=== PATIENT | female | born 1965 | race Caucasian/White ===

== ENCOUNTER 2023-06-11 14:20 | Outpatient (AMB) | payer BC, SELFPAY ==
--- NOTE | 2023-06-11 14:22 | MHC.OFFVIS ---
Intake Vital Signs 06/11/23 14:27 Height 5 ft 4 in Weight 140 lb 2 oz BMI 24.0 BP 129/72 Blood Pressure Location Lt brachial Position Sitting Pulse 69 Pulse Source Pulse Oximeter Pulse Oximetry (%) 99 Oxygen Delivery Method Room Air Intake Visit Reasons: LT NECK PAIN AND RT SHOULDER PAIN/Confirmed Intake Note: Pain today 8/10 Development Intern Required: No Accompanied by: Self / Same As Patient Allergies No Known Allergies Allergy (Verified 06/11/23 14:27) HPI LT NECK PAIN AND RT SHOULDER PAIN/Confirmed HPI Details PT had MRI at [facility] 06/04/23 Location Right shoulder Duration 1+ year Characteristics of symptom or complaint Burning, aching, stabbing, sharp, tingling Aggravating or associated factors Movements, walking Relieving factors ibuprofen, heat Treatment PT-no improvement, chiropractor, acupuncture HPI Comments History of Present Illness Details Leyda is a very pleasant 58-year-old female who presents to the office today for evaluation management of her right sided neck pain. Patient reports that she has a suffering with this pain for approximately 1 year. She has tried PT 3 months ago and home exercise program without relief. She is taking muscle relaxers, anti-inflammatory medications and pzod-fqz-[id number] Tylenol without improvement of her symptoms. She has tried topical medications but also did not provide relief. She has been to the chiropractor and utilized a 10s machine which also did not provide relief. Patient has had x-rays and MRI consult as per below. She denies pain with full range of motion to the right upper extremity. Patient was only started cyclobenzaprine, she reports that she had nightmares and stopped taking it. She was prescribed tramadol but he reports that it gives her headache. Patient is also suffering with right-sided TMJ, she completed an MRI and has an appointment with maxillofacial in the near future. Pain today is rated at 8/10 In terms of muscle damage condition is described as burning, aching and stabbing. Pain is negatively impacting patient's normal sleep, ability to perform daily activities, ability to care for self, ability to function normally and her sleep and work. [facility] Medical History (Updated 06/11/23 @ 15:01 by Anna Dudley, GUEST SERVICE SUPERVISOR, PATHOLOGICAL TECHNICIAN) Neck pain Shoulder pain Surgical History (Updated 06/11/23 @ 14:38 by Beronica Harrison) H/O abdominoplasty Social History Patient Tobacco Use Status: Never used Tobacco Review of Systems Const All systems reviewed & are unremarkable except as noted in HPI and below Physical Exam Vital Signs: Last Vital Signs Pulse 69 06/11/23 14:27 BP 129/72 06/11/23 14:27 Pulse Ox 99 06/11/23 14:27 Oxygen Delivery Method Room Air 06/11/23 14:27 BMI result Body Mass Index 24.0 General: awake, alert, oriented. Answers questions appropriately. Fully engaged in examination. Skin: warm, dry, intact HEENT: Normocephalic. Hearing intact. Cardiac: External chest normal in appearance. Respiratory: No cough, audible wheezing or stridor. Abdomen: without gross distension. MS: No obvious swelling or deformities. Cervical Spine: Visible inspection without gross abnormality Tenderness throughout right upper and middle trapezius Tender to palpation over midline cervical vertebrae and cervical paraspinal muscles Cervical ROM intact Right shoulder ROM intact Right shoulder nontender to palpation over AC and GH. Spurling compression test positive Neurological: Oriented to person, place, time and situation. Thought process intact. No gait abnormalities appreciated. Psychiatric: Appropriate mood and affect. Good judgment and insight. Results Reviewed Results Reviewed: 06/04/23 MR SHOULDER WITHOUT CONTRAST RIGHT FINDINGS: The acromioclavicular joint is congruent. Undersurface of the acromion is flat. Coracoclavicular and coracoacromial ligaments are intact. Small fluid is present in the subacromial/subdeltoid bursa, compatible with low-grade bursitis. Rotator cuff muscle bulk is preserved. Supraspinatus and infraspinatus tendons exhibits intermediate T2 fat sat heterogeneous signal in keeping with low-grade tendinosis (coronal T2 fat sat images 12 and 13). Round 0.6 cm calcific deposit is associated with the distal infraspinatus tendon, along with surrounding mild hyperintense T2 fat-sat soft tissue edema, compatible with hydroxyapatite deposition and mild calcific peritendinitis (coronal T2 fat sat image 8; sagittal T2 fat sat image 8). No full-thickness or retracted cuff tear. Teres minor and subscapularis tendons are intact Long head biceps tendon is intact. The glenohumeral joint is congruent. No joint effusion. Glenohumeral cartilage is preserved. No labral detachment. Bone signal is normal. No soft tissue collection. IMPRESSION: 1. Mild calcific peritendinitis along the distal infraspinatus tendon with corresponding mild infraspinatus/supraspinatus tendinosis. No high-grade or retracted cuff tear. 06/04/23 MR SPINE CERVICAL without CONTRAST FINDINGS: No significant listhesis of the cervical vertebral bodies. Mild degenerative anterolisthesis of T1 on T2 and T2 on T3. There is loss of intervertebral disc space height and marginal osteophyte formation C5-C6. Mild loss of intervertebral disc space height and marginal osteophyte formation C6-C7. Mild degenerative changes of the C1-C2 articulation and craniocervical junction otherwise of normal relationship. Mild cervical facet arthrosis. Prevertebral soft tissues of normal appearance. No cord signal abnormality identified. Examination through the cranial cervical junction showing it to be widely patent. Examination through the C2-C3, C3-C4 and C4-C5 intervertebral levels without central stenosis or foraminal narrowing. Examination through the C5-C6 intervertebral level revealing mild facet arthrosis with uncovertebral degenerative changes and posterior disc osteophyte. There is no significant associated central stenosis. Moderate RIGHT foraminal narrowing. Mild to moderate LEFT foraminal narrowing. Examination through the C6-C7 intervertebral level revealing facet arthrosis. Mild uncovertebral degenerative changes. Small posterior disc osteophyte. No significant central stenosis. Mild bilateral foraminal narrowing. Examination through the C7-T1 intervertebral level revealing facet arthrosis. No central stenosis or significant foraminal narrowing. Impression: Spondylotic changes and facet arthrosis. No findings of fracture or traumatic listhesis. No significant central stenosis. Varying degrees of mild to moderate foraminal narrowing as above. Note made of mild degenerative anterolisthesis of T1 on T2 and T2 on T3. Significant associated central stenosis. Mild bilateral foraminal narrowing. These levels. Assessment & Plan Assessment & Plan (1) Cervical spondylolysis: Code(s): M43.02 - Spondylolysis, cervical region (2) Facet arthritis of cervical region: Code(s): M47.812 - Spondylosis without myelopathy or radiculopathy, cervical region (3) Trapezius muscle strain: Code(s): S46.819A - Strain of other muscles, fascia and tendons at shoulder and upper arm level, unspecified arm, initial encounter Plan Leyda is a very pleasant 58-year-old female presents to the office today for evaluation management of her left neck pain. History, physical exam of rectum testing consistent with cervical facet arthropathy and trapezius muscle strain. Discontinue cyclobenzaprine, prescription sent for methocarbamol 500 mg p.o. t.i.d. as needed. Patient will call the office if she has notable side effects and we can try something different. Patient is exhausted conservative therapy including PT, home exercise program, nonsteroidal anti-inflammatory medication, [id number] medications, topical medications and prescription medications. Discussed options for treatment including diagnostic interventional testing, epidural steroid injections, peripheral nerve stimulation with Sprint, RFA and more permanent neuromodulation. Informational pamphlets provided. Will schedule for Fluoroscopy guided diagnostic Right C4-5-6 MBBs with local anesthetic. if patient reports good pain relief with improvement in function and mobility will plan for C5MB Sprint PNS. All questions and concerns have been answered and patient agrees with the plan. Follow up after injections and sooner if needed. Medications: New methocarbamol Discontinue use of Cyclobenzaprine No driving while taking this medication. Do no take with alcohol or other [employer] SPECIALIST Depressants 500 mg PO TID PRN 90 tabs 1RF muscle spasm Coding Level of Care Code New Pt Level 4 (13903) Diagnoses Cervical spondylolysis M43.02 Facet arthritis of cervical region M47.812 Trapezius muscle strain S46.816A
[2023-06-11 14:27] VITALS: BP 129/72; PULSE 69; O2SAT 99; BMI 24.0
== END 2023-06-11 14:50 | disposition home or self-care (01) ==
PROVIDERS: PCP Internal Medicine; Referring Provider Internal Medicine; Visit Provider Registered Nurse Emergency
DX: M43.02 Spondylolysis, cervical region (principal); M47.812 Spondylosis without myelopathy or radiculopathy, cervical region; S46.819A Strain of other muscles, fascia and tendons at shoulder and upper arm level, unspecified arm, initial encounter
CPT/HCPCS: 99204

== ENCOUNTER → 2023-06-11 14:20 | Outpatient (BNVA) | payer BC, SELFPAY | PROVIDERS: PCP Internal Medicine; Referring Provider Internal Medicine; Visit Provider Registered Nurse Emergency ==

== ENCOUNTER 2023-07-01 15:43 | Outpatient (AMB) | payer BC, SELFPAY ==
--- NOTE | 2023-07-01 15:44 | A.OFFVIS_ITS ---
Intake Vital Signs 07/01/23 15:48 Height 5 ft 4 in Weight 145 lb 4 oz BMI 24.9 BP 130/62 Blood Pressure Location Lt brachial Position Sitting Respiration 16 Pulse 62 Pulse Source Pulse Oximeter Pulse Oximetry (%) 96 Oxygen Delivery Method Room Air Intake Visit Reasons: Would like to discuss MRI results before Jul Appt Intake Note: Patient comes in to discuss MRI results. Reports pain level 7/10. Allergies No Known Allergies Allergy (Verified 07/01/23 15:48) HPI HPI Comments History of Present Illness Details Leyda is a very pleasant 58-year-old female who presents to the office today for evaluation management of her right sided neck pain. She was scheduled for right-sided medial branch block C4-C5 C6 diagnostic to confirm more elimin ate the facet arthropathy and arthrosis as the source of her pain. She is here today to ask questions about the procedure, the goal of the procedure, and the side effects and complications. Everything was explained to the patient very carefully. She would like to proceed with the scheduled procedure. Prior: Patient reports that she has a suffering with this pain for approximately 1 year. She has tried PT 3 months ago and home exercise program without relief. She is taking muscle relaxers, anti-inflammatory medications and gitu-rfl-wnryaxl Tylenol without improvement of her symptoms. She has tried topical medications but also did not provide relief. She has been to the chiropractor and utilized a 10s machine which also did not provide relief. Patient has had x-rays and MRI consult as per below. She denies pain with full range of motion to the right upper extremity. Patient was only started cyclobenzaprine, she reports that she had nightmares and stopped taking it. She was prescribed tramadol but he reports that it gives her headache. Patient is also suffering with right-sided TMJ, she completed an MRI and has an appointment with maxillofacial in the near future. Pain today is rated at 8/10 In terms of muscle damage condition is described as burning, aching and stabbing. Pain is negatively impacting patient's normal sleep, ability to perform daily activities, ability to care for self, ability to function normally and her sleep and work. [facility] Medical History (Updated 06/11/23 @ 15:01 by Anna Dudley, EZEKIEL, MANAGER AGRICULTURE) Neck pain Shoulder pain Surgical History (Updated 06/11/23 @ 14:38 by Beronica Harrison) H/O abdominoplasty Social History (Updated 06/11/23 @ 14:38 by Beronica Harrison) Patient Tobacco Use Status: Never used Tobacco Review of Systems Const All systems reviewed & are unremarkable except as noted in HPI and below Physical Exam Vital Signs: Last Vital Signs Pulse 62 07/01/23 15:48 Resp 16 07/01/23 15:48 BP 130/62 07/01/23 15:48 Pulse Ox 96 07/01/23 15:48 Oxygen Delivery Method Room Air 07/01/23 15:48 BMI result Body Mass Index 24.9 General: awake, alert, oriented. Answers questions appropriately. Fully engaged in examination. Skin: warm, dry, intact HEENT: Normocephalic. Hearing intact. Cardiac: External chest normal in appearance. Respiratory: No cough, audible wheezing or stridor. Abdomen: without gross distension. MS: No obvious swelling or deformities. Cervical Spine: Visible inspection without gross abnormality Tenderness throughout right upper and middle trapezius Tender to palpation over midline cervical vertebrae and cervical paraspinal muscles Cervical ROM intact Right shoulder ROM intact Right shoulder nontender to palpation over AC and GH. Spurling compression test positive Neurological: Oriented to person, place, time and situation. Thought process intact. No gait abnormalities appreciated. Psychiatric: Appropriate mood and affect. Good judgment and insight. Results Reviewed Results Reviewed: 06/04/23 MR SHOULDER WITHOUT CONTRAST RIGHT FINDINGS: The acromioclavicular joint is congruent. Undersurface of the acromion is flat. Coracoclavicular and coracoacromial ligaments are intact. Small fluid is present in the subacromial/subdeltoid bursa, compatible with low- grade bursitis. Rotator cuff muscle bulk is preserved. Supraspinatus and infraspinatus tendons exhibits intermediate T2 fat sat heterogeneous signal in keeping with low-grade tendinosis (coronal T2 fat sat images 12 and 13). Round 0.6 cm calcific deposit is associated with the distal infraspinatus tendon, along with surrounding mild hyperintense T2 fat-sat soft tissue edema, compatible with hydroxyapatite deposition and mild calcific peritendinitis (coronal T2 fat sat image 8; sagittal T2 fat sat image 8). No full-thickness or retracted cuff tear. Teres minor and subscapularis tendons are intact Long head biceps tendon is intact. The glenohumeral joint is congruent. No joint effusion. Glenohumeral cartilage is preserved. No labral detachment. Bone signal is normal. No soft tissue collection. IMPRESSION: 1. Mild calcific peritendinitis along the distal infraspinatus tendon with corresponding mild infraspinatus/supraspinatus tendinosis. No high-grade or retracted cuff tear. 06/04/23 MR SPINE CERVICAL without CONTRAST FINDINGS: No significant listhesis of the cervical vertebral bodies. Mild degenerative anterolisthesis of T1 on T2 and T2 on T3. There is loss of intervertebral disc space height and marginal osteophyte formation C5-C6. Mild loss of intervertebral disc space height and marginal osteophyte formation C6-C7. Mild degenerative changes of the C1-C2 articulation and craniocervical junction otherwise of normal relationship. Mild cervical facet arthrosis. Prevertebral soft tissues of normal appearance. No cord signal abnormality identified. Examination through the cranial cervical junction showing it to be widely patent. Examination through the C2-C3, C3-C4 and C4-C5 intervertebral levels without central stenosis or foraminal narrowing. Examination through the C5-C6 intervertebral level revealing mild facet arthrosis with uncovertebral degenerative changes and posterior disc osteophyte. There is no significant associated central stenosis. Moderate RIGHT foraminal narrowing. Mild to moderate LEFT foraminal narrowing. Examination through the C6-C7 intervertebral level revealing facet arthrosis. Mild uncovertebral degenerative changes. Small posterior disc osteophyte. No significant central stenosis. Mild bilateral foraminal narrowing. Examination through the C7-T1 intervertebral level revealing facet arthrosis. No central stenosis or significant foraminal narrowing. Impression: Spondylotic changes and facet arthrosis. No findings of fracture or traumatic listhesis. No significant central stenosis. Varying degrees of mild to moderate foraminal narrowing as above. Note made of mild degenerative anterolisthesis of T1 on T2 and T2 on T3. Significant associated central stenosis. Mild bilateral foraminal narrowing. These levels. Assessment & Plan Assessment & Plan (1) Cervical spondylolysis: Code(s): M43.02 - Spondylolysis, cervical region (2) Facet arthritis of cervical region: Code(s): M47.812 - Spondylosis without myelopathy or radiculopathy, cervical region (3) Trapezius muscle strain: Code(s): S46.819A - Strain of other muscles, fascia and tendons at shoulder and upper arm level, unspecified arm, initial encounter Plan Leyda is a very pleasant 58-year-old female presents to the office today for evaluation management of her left neck pain. History, physical exam of rectum testing consistent with cervical facet arthropathy and trapezius muscle strain. She was explained very careful today risks benefits and alternatives of the pro cedure. She was explained today that the procedure is containing no steroids. I am looking forward to perform this procedure. The procedure will be right-sided diagnostic C4-C5 C6 medial branch block. Coding Level of Care Code Est Pt Level 3 (72855) Diagnoses Cervical spondylolysis M43.02 Facet arthritis of cervical region M47.812 Trapezius muscle strain S46.819A
[2023-07-01 15:48] VITALS: BP 130/62; PULSE 62; RESP 16; O2SAT 96; BMI 24.9
== END 2023-07-01 16:06 | disposition home or self-care (01) ==
PROVIDERS: PCP Internal Medicine; Visit Provider Anesthesiology
DX: M43.02 Spondylolysis, cervical region (principal); M47.812 Spondylosis without myelopathy or radiculopathy, cervical region; S46.819A Strain of other muscles, fascia and tendons at shoulder and upper arm level, unspecified arm, initial encounter
CPT/HCPCS: 99213

== ENCOUNTER → 2023-07-01 15:43 | Outpatient (BNVA) | payer BC, SELFPAY | PROVIDERS: PCP Internal Medicine; Visit Provider Anesthesiology ==

== ENCOUNTER 2023-07-21 06:14 | Outpatient (REF) | payer BC, SELFPAY ==
--- NOTE | ~2023-07-21 | FL_ITS ---
EXAMINATION: XR FLUOROSCOPY WITH IMAGES CLINICAL INFORMATION: Spondylosis, cervical region COMPARISON: None available. TECHNIQUE: Fluoroscopy Supervised By: Dr. Steve Cook. Fluoroscopy Time: 0.3 minutes. Cumulative Dose: 0.865 mGy. DAP: 0.0150 Gycm2. Images: 4. FINDINGS: The first 2 images are AP and lateral views of the cervical spine with the tip of a total of 3 needles positioned over C4, C5 and C6 followed by contrast injection with contrast seen extending left lateral from C3-C4 disc space to the body of C6. FL/FL guidance in treatment room IMPRESSION: Fluoroscopic guidance provided for Dr. Cook, as described above.
== END 2023-07-21 06:15 | disposition home or self-care (01) ==
LOC: CF 06:14
PROVIDERS: Visit Provider Anesthesiology
DX: M43.02 Spondylolysis, cervical region (principal); M47.812 Spondylosis without myelopathy or radiculopathy, cervical region; S46.811A Strain of other muscles, fascia and tendons at shoulder and upper arm level, right arm, initial encounter
CPT/HCPCS: 64490; 64491; J2795; Q9967

== ENCOUNTER 2023-07-21 11:01 | Outpatient (AMB) | payer BC, SELFPAY ==
--- NOTE | 2023-07-21 11:34 | MHC.OFFVIS ---
Intake Vital Signs 07/21/23 12:05 07/21/23 12:06 Height 5 ft 4 in 5 ft 4 in Weight 145 lb 4 oz 145 lb 4 oz BMI 24.9 24.9 BP 134/64 122/80 Blood Pressure Location Lt brachial Lt brachial Position Sitting Sitting Respiration 16 16 Pulse 62 61 Pulse Source Pulse Oximeter Pulse Oximeter Pulse Oximetry (%) 100 100 Oxygen Delivery Method Room Air Room Air Comment pre-op post-op Intake Visit Reasons: RIGHT DIAGNOSTIC C4, C5, C6 MBB Allergies No Known Allergies Allergy (Verified 07/21/23 12:07) PFSH Medical History (Updated 06/11/23 @ 15:01 by Anna Dudley APRN, SIZE STAMPER) Neck pain Shoulder pain Surgical History (Updated 06/11/23 @ 14:38 by Beronica Harrison) H/O abdominoplasty Social History (Updated 06/11/23 @ 14:38 by Beronica Harrison) Patient Tobacco Use Status: Never used Tobacco Physical Exam Vital Signs: Last Vital Signs Pulse 61 07/21/23 12:06 Resp 16 07/21/23 12:06 BP 122/80 07/21/23 12:06 Pulse Ox 100 07/21/23 12:06 Oxygen Delivery Method Room Air 07/21/23 12:06 BMI result Body Mass Index 24.9 Assessment & Plan Assessment & Plan (1) Cervical spondylolysis: Code(s): M43.02 - Spondylolysis, cervical region (2) Facet arthritis of cervical region: Code(s): M47.812 - Spondylosis without myelopathy or radiculopathy, cervical region Plan: Right-sided C4-C4- C6 therapeutic medial branch block. ?Informed consent was explained to the patient. All questions were explained and answered.? The patient was taken inside the operating room where she was positioned prone on the operating table. Time-out was performed delineating correct site, side, the nature of the procedure, patient's allergy, preoperative antibiotic if needed.? All operating room staff was participating in OR time-out procedure. The back of the neck and upper back were prepped with ChloraPrep and draped with sterile towels.? Sterilely draped C-arm was brought over the operating field and sq picture of? C4-C5-C6 vertebrae were delineated on the screen.? Points of interest were delineated as lateral masses on the right of the vertebrae as above. The waste of each lateral mass was chosen as the target of the tip of the needles on AP view and lateral view was used as a safety view for the tips of the needles position.?? The projections of the point of interest to the skin were injected with the small amount of local anesthetic lidocaine 2% 1-1.5 cc.? After that 22 gauge 3and 1/2 inch? spinal needles were driven to the point of interest in tunnel vision fashion. After needles gently contacted the bone at the point of interests the needle was injected with small amount of the contrast. The injections did not demonstrate intravascular or intrathecal spread.. After that ropivacaine 0.5%-1cc. was injected into each location of the needles. Upon completion of the injections the needles were removed and sterile dressings were applied, the patient was a taken? outside of the operating room to recovery room where she recovered uneventfully. (3) Trapezius muscle strain: Code(s): S46.819A - Strain of other muscles, fascia and tendons at shoulder and upper arm level, unspecified arm, initial encounter Plan Leyda is a very pleasant 58-year-old female presents to the office today for evaluation management of her left neck pain. History, physical exam of rectum testing consistent with cervical facet arthropathy and trapezius muscle strain. She was explained very careful today risks benefits and alternatives of the procedure. She was explained today that the procedure is containing no steroids. I am looking forward to perform this procedure. The procedure will be right-sided diagnostic C4-C5 C6 medial branch block. Orders: Orders FL guidance in treatment room Today M43.02 - Spondylolysis, cervical region Coding Level of Care Code Procedure Only Diagnoses Cervical spondylolysis M43.02 Facet arthritis of cervical region M47.812 Trapezius muscle strain S46.819A
[2023-07-21 12:05] VITALS: BP 134/64; PULSE 62; RESP 16; O2SAT 100; BMI 24.9
[2023-07-21 12:06] VITALS: BP 122/80; PULSE 61; RESP 16; O2SAT 100; BMI 24.9
== END 2023-07-21 12:04 | disposition home or self-care (01) ==
LOC: HO.PMCPRC 11:01
PROVIDERS: PCP Internal Medicine; Visit Provider Anesthesiology
DX: M43.02 Spondylolysis, cervical region (principal); M47.812 Spondylosis without myelopathy or radiculopathy, cervical region; S46.819A Strain of other muscles, fascia and tendons at shoulder and upper arm level, unspecified arm, initial encounter
CPT/HCPCS: 64490; 64491

== ENCOUNTER 2023-07-30 15:18 | Outpatient (AMB) | payer BC, SELFPAY ==
--- NOTE | 2023-07-30 15:28 | A.OFFVIS_ITS ---
Intake Vital Signs 07/30/23 15:33 Height 5 ft 4 in Weight 148 lb BMI 25.4 BP 122/66 Blood Pressure Location Lt brachial Position Sitting Respiration 18 Pulse 77 Pulse Source Pulse Oximeter Pulse Oximetry (%) 97 Oxygen Delivery Method Room Air Intake Visit Reasons: RIGHT DIAGNOSTIC C4, C5, C6 MBB/07/21/23 Intake Note: Patient came in for post-op appointment. Reports pain 6/10. Allergies No Known Allergies Allergy (Verified 07/30/23 15:33) HPI HPI Comments History of Present Illness Details Leyda is a very pleasant 58-year-old female who presents to the office today for evaluation management of her right sided neck pain. She went for diagnostic right-sided medial branch block C4-C5 C6. She reports no pain improvement more than 30% after the procedure. She reports that pain returned to baseline 6 hours after procedure. Therefore I can not consider the facet joints as a true pain generator despite the fact of the MRI demonstrating facet arthropathy. There is also no significant MRI changes evident of the nerve root compression or spinal cord compression. Therefore myofascial pain syndrome pain should be considered as a true pain generator for this patient. I recommend her to try physical therapy but she does not want to go to physical therapy. He has local chiropractor who previously was helpful for her pain control. She will go to that chiropractor. I also will prescribe her baclofen 20 mg t.i.d. to help her pain. Low impact aerobic exercise also recommended. Prior: Patient reports that she has a suffering with this pain for approximately 1 year. She has tried PT 3 months ago and home exercise program without relief. She is taking muscle relaxers, anti-inflammatory medications and [id number] Tylenol without improvement of her symptoms. She has tried topical medications but also did not provide relief. She has been to the chiropractor and utilized a 10s machine which also did not provide relief. Patient has had x-rays and MRI consult as per below. She denies pain with full range of motion to the right upper extremity. Patient was only started cyclobenzaprine, she reports that she had nightmares and stopped taking it. She was prescribed tramadol but he reports that it gives her headache. Patient is also suffering with right-sided TMJ, she completed an MRI and has an appointment with maxillofacial in the near future. Pain today is rated at 8/10 In terms of muscle damage condition is described as burning, aching and stabbing. Pain is negatively impacting patient's normal sleep, ability to perform daily activities, ability to care for self, ability to function normally and her sleep and work. FORMERLY [facility], LATER [facility] Medical History (Updated 07/30/23 @ 16:17 by Steve Cook MD) Neck pain Shoulder pain Surgical History (Updated 06/11/23 @ 14:38 by Beronica Harrison) H/O abdominoplasty Social History (Updated 06/11/23 @ 14:38 by Beronica Harrison) Patient Tobacco Use Status: Never used Tobacco Review of Systems Const All systems reviewed & are unremarkable except as noted in HPI and below Physical Exam Vital Signs: Last Vital Signs Pulse 77 07/30/23 15:33 Resp 18 07/30/23 15:33 BP 122/66 07/30/23 15:33 Pulse Ox 97 07/30/23 15:33 Oxygen Delivery Method Room Air 07/30/23 15:33 BMI result Body Mass Index 25.4 General: awake, alert, oriented. Answers questions appropriately. Fully engaged in examination. Skin: warm, dry, intact HEENT: Normocephalic. Hearing intact. Cardiac: External chest normal in appearance. Respiratory: No cough, audible wheezing or stridor. Abdomen: without gross distension. MS: No obvious swelling or deformities. Cervical Spine: Visible inspection without gross abnormality Tenderness throughout right upper and middle trapezius Tender to palpation over midline cervical vertebrae and cervical paraspinal muscles Cervical ROM intact Right shoulder ROM intact Right shoulder nontender to palpation over AC and GH. Spurling compression test positive Neurological: Oriented to person, place, time and situation. Thought process intact. No gait abnormalities appreciated. Psychiatric: Appropriate mood and affect. Good judgment and insight. Assessment & Plan Assessment & Plan (1) Cervical spondylolysis: Code(s): M43.02 - Spondylolysis, cervical region (2) Facet arthritis of cervical region: Code(s): M47.812 - Spondylosis without myelopathy or radiculopathy, cervical region (3) Trapezius muscle strain: Code(s): S46.819A - Strain of other muscles, fascia and tendons at shoulder and upper arm level, unspecified arm, initial encounter (4) Myofascial pain syndrome: Code(s): M79.18 - Myalgia, other site Plan Leyda is a very pleasant 58-year-old female presents to the office today for evaluation management of her right neck pain. Diagnostic medial branch block on the right C4-C5 C6 resulted in no pain improvement more than 30%. Myofascial pain syndrome most likely the pain generators for this patient. Baclofen will be prescribed. She will attend local chiropractor. If she wants to go to attend physical therapy I will make an order for the patient. Low impact aerobic exercise is also recommended to the patient. Medications: New baclofen 20 mg PO TID PRN 90 tabs 4RF Pain in the neck 30 days Discontinued methocarbamol Discontinue use of Cyclobenzaprine No driving while taking this medication. Do no take with alcohol or other [employer] Depressants Discontinued Reason: Doctor's Order 500 mg PO TID PRN 90 tabs 1RF muscle spasm Coding Level of Care Code Est Pt Level 3 (45829) Diagnoses Cervical spondylolysis M43.02 Facet arthritis of cervical region M47.812 Trapezius muscle strain S46.819A Myofascial pain syndrome M79.18
[2023-07-30 15:33] VITALS: BP 122/66; PULSE 77; RESP 18; O2SAT 97; BMI 25.4
== END 2023-07-30 15:42 | disposition home or self-care (01) ==
PROVIDERS: PCP Internal Medicine; Visit Provider Anesthesiology
DX: M43.02 Spondylolysis, cervical region (principal); M47.812 Spondylosis without myelopathy or radiculopathy, cervical region; S46.819A Strain of other muscles, fascia and tendons at shoulder and upper arm level, unspecified arm, initial encounter; M79.18 Myalgia, other site
CPT/HCPCS: 99213

== ENCOUNTER → 2023-07-30 15:18 | Outpatient (BNVA) | payer BC, SELFPAY | PROVIDERS: PCP Internal Medicine; Visit Provider Nurse Practitioner Family ==

== ENCOUNTER 2023-10-21 14:33 | Outpatient (AMB) | payer BC, SELFPAY ==
--- NOTE | 2023-10-21 14:36 | MHC.OFFVIS ---
Vital Signs 10/21/23 14:42 Height 5 ft 4 in Weight 147 lb 6 oz BMI 25.3 BP 130/62 Blood Pressure Location Lt brachial Position Sitting Respiration 16 Pulse 66 Pulse Source Pulse Oximeter Pulse Oximetry (%) 95 Oxygen Delivery Method Room Air Intake Visit Reasons: Sprint Discussion Intake Note: Patient comes in to discuss sprint. Reports pain 6/10. Allergies No Known Allergies Allergy (Verified 10/21/23 14:43) HPI Comments Details: Leyda is back in my office with request to perform sprint PNS to treat her pain. I explained to her that since her medial branch block C4-C5 C6 resulted only in 30% pain improvement the sprint PNS to treat the appropriate multifidus muscles on the right side not be indicated for her. I explained to her that possibly we can expand the area of injection by giving her C3-C4 C5-C6-C7 right-sided medial branch block and if this procedure with expanded level will help her then to try to perform sprint PNS. Otherwise she can not continue conservative measures, she considers acupuncture to help her pain. I will see her next time as needed if she decides to go for the procedure she can not give me a call and I will schedule her for the right-sided C3-C4 C5-C6 C7 diagnostic -medial branch block. Prior: Patient reports that she has a suffering with this pain for approximately 1 year. She has tried PT 3 months ago and home exercise program without relief. She is taking muscle relaxers, anti-inflammatory medications and [id number] Tylenol without improvement of her symptoms. She has tried topical medications but also did not provide relief. She has been to the chiropractor and utilized a 10s machine which also did not provide relief. Patient has had x-rays and MRI consult as per below. She denies pain with full range of motion to the right upper extremity. Patient was only started cyclobenzaprine, she reports that she had nightmares and stopped taking it. She was prescribed tramadol but he reports that it gives her headache. Patient is also suffering with right-sided TMJ, she completed an MRI and has an appointment with maxillofacial in the near future. Pain today is rated at 8/10 In terms of muscle damage condition is described as burning, aching and stabbing. Pain is negatively impacting patient's normal sleep, ability to perform daily activities, ability to care for self, ability to function normally and her sleep and work. FORMERLY [facility], LATER [facility] Medical History (Updated 07/30/23 @ 16:17 by Steve Cook MD) Neck pain Shoulder pain Surgical History (Updated 06/11/23 @ 14:38 by Beronica Harrison) H/O abdominoplasty Social History (Updated 06/11/23 @ 14:38 by Beronica Harrison) Patient Tobacco Use Status: Never used Tobacco Review of Systems Const All systems reviewed & are unremarkable except as noted in HPI and below Physical Exam Vital Signs: Last Vital Signs Pulse 66 10/21/23 14:42 Resp 16 10/21/23 14:42 BP 130/62 10/21/23 14:42 Pulse Ox 95 10/21/23 14:42 Oxygen Delivery Method Room Air 10/21/23 14:42 BMI result Body Mass Index 25.3 General: awake, alert, oriented. Answers questions appropriately. Fully engaged in examination. Skin: warm, dry, intact HEENT: Normocephalic. Hearing intact. Cardiac: External chest normal in appearance. Respiratory: No cough, audible wheezing or stridor. Abdomen: without gross distension. MS: No obvious swelling or deformities. Cervical Spine: Visible inspection without gross abnormality Tenderness throughout right upper and middle trapezius Tender to palpation over midline cervical vertebrae and cervical paraspinal muscles Cervical ROM intact Right shoulder ROM intact Right shoulder nontender to palpation over AC and GH. Spurling compression test positive Neurological: Oriented to person, place, time and situation. Thought process intact. No gait abnormalities appreciated. Psychiatric: Appropriate mood and affect. Good judgment and insight. Assessment & Plan Assessment & Plan (1) Cervical spondylolysis: Code(s): M43.02 - Spondylolysis, cervical region Category: Medical (2) Facet arthritis of cervical region: Code(s): M47.812 - Spondylosis without myelopathy or radiculopathy, cervical region Category: Medical (3) Trapezius muscle strain: Code(s): S46.819A - Strain of other muscles, fascia and tendons at shoulder and upper arm level, unspecified arm, initial encounter Category: Medical (4) Myofascial pain syndrome: Code(s): M79.18 - Myalgia, other site Category: Medical Plan Leyda is a very pleasant 58-year-old female presents to the office today for evaluation management of her right neck pain. Diagnostic medial branch block on the right C4-C5 C6 resulted in no pain improvement more than 30%. The patient tried local chiropractor which did not help her pain. She is considering the acupuncture to help her pain. I made my recommendations about acupuncture for her. She thought that we can not do sprint PNS for her. I explained to her that with the results of no more than 30% pain improvement we can not do sprint PNS. I explained to her that we can try to expand the level of the injection up to [id number] on the right diagnostic and if this procedure will help her pain better than previous procedure I would be glad to perform sprint PNS for her. Coding Level of Care Code Est Pt Level 3 (52666) Diagnoses Cervical spondylolysis M43.02 Facet arthritis of cervical region M47.812 Trapezius muscle strain S46.819A Myofascial pain syndrome M79.18
[2023-10-21 14:42] VITALS: BP 130/62; PULSE 66; RESP 16; O2SAT 95; BMI 25.3
== END 2023-10-21 15:15 | disposition home or self-care (01) ==
PROVIDERS: PCP Internal Medicine; Visit Provider Anesthesiology
DX: M43.02 Spondylolysis, cervical region (principal); M47.812 Spondylosis without myelopathy or radiculopathy, cervical region; S46.819A Strain of other muscles, fascia and tendons at shoulder and upper arm level, unspecified arm, initial encounter; M79.18 Myalgia, other site
CPT/HCPCS: 99213

== ENCOUNTER → 2023-10-21 14:33 | Outpatient (BNVA) | payer BC, SELFPAY | PROVIDERS: PCP Internal Medicine; Visit Provider Anesthesiology ==